=== PATIENT | female | born 1970 | race Caucasian/White ===

== ENCOUNTER 2017-11-27 | Emergency (ER) | payer OTHER ==
[2017-11-27 00:18] VITALS: BP 118/78; PULSE 71; TEMP 98.1; BMI 24.8
--- NOTE | 2017-11-27 00:54 | PDOC ---
History of Present Illness - General Chief Complaint: Syncope/Near Syncope Stated Complaint: HEADACHE, SYNCOPE, DIZZINESS Time Seen by Provider: 11/27/17 00:53 History Source: Patient Exam Limitations: No Limitations - History of Present Illness Initial Comments: Pt is a 47 yo F, with no significant PMH, who presents with vague symptoms, including increased fatigue and "forgetfulness" over the past 6 months and increased frontal headaches every 1-2 days for the past 2 weeks. 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 She states she felt "dizzy" but could not describe if the sensation was vertigo or light-headedness. Later in the day, the pt noticed a small "bump" on the left side of her neck, and she was concerned that she "might have a blood clot or have a stroke". The pt has recently seen her PCP (Dr. Bree Hood) for work-up last Sunday. The lab work and thyroid US are pending with her PCP office. She denies fevers/chills, vision changes, syncope, confusion, chest pain , palpitations, SOB, abdominal pain, urinary symptoms, diarrhea/constipation, and leg swelling. She has been tolerating PO intake without difficulty. LMP 2 weeks ago, normal in length and amount of bleeding. Denies cigarette smoking and drug use. Occasional alcohol use. 11/27/17 01:55 11/29/17 19:49 Past History - Travel Traveled outside of the country in the last 30 days: No Close contact w/someone who was outside of country & ill: No - Past Medical History Allergies/Adverse Reactions: Allergies Allergy/AdvReac Type Severity Reaction Status Date / Time No Known Allergies Allergy Verified 11/27/17 02:08 Home Medications: Ambulatory Orders NK [No Known Home Medication] 11/27/17 Hx Myocardial Infarction: No DVT: No Diabetes: No HTN: No Hypercholesterolemia: No Thyroid Disease: No - Surgical History Abdominal Surgery: No Cardiac Surgery: No - Suicide/Smoking/Psychosocial Hx Smoking History: Never smoked Have you smoked in the past 12 months: No Information on smoking cessation initiated: No Hx Alcohol Use: No Drug/Substance Use Hx: No Review of Systems - Review of Systems Able to Perform ROS?: Yes Is the patient limited Romanian proficient: No Constitutional: Yes: Weight Stable. No: Chills, Diaphoresis, Fever, Loss of Appetite, Night Sweats, Weakness HEENTM: No: Blurred Vision, Recent change in vision, Double Vision, Nose Congestion, Hearing Loss, Throat Pain, Difficulty Swallowing Respiratory: No: Cough, Orthopnea, Shortness of Breath Cardiac (ROS): Yes: Lightheadedness. No: Chest Pain, Edema, Irregular Heart Rate, Palpitations, Syncope (pre-syncopal episode today, unclear if light- headed or vertigo), Chest Tightness ABD/GI: No: Abdominal Distended, Blood Streaked Bowels, Constipated, Diarrhea, Nausea, Poor Appetite, Poor Fluid Intake, Vomiting : No: Burning, Dysuria, Frequency, Flank Pain, Pain Musculoskeletal: Yes: Neck Pain (L-sided neck pain over area of small mass). No : Back Pain, Joint Pain, Muscle Pain, Muscle Weakness Integumentary: No: Bruising, Flushing, Rash Neurological: Yes: Headache (mild frontal headache x2 weeks). No: Numbness, Paresthesia, Seizure, Tremors, Weakness, Unsteady Gait, Ataxia, Dizziness Psychiatric: Yes: Other (fatigue, not "feeling herself," forgetful). No: Anxiety, Depression, Frequent Crying, Stressors, Sleep Pattern Change, Change in Appetite Endocrine: No: Excessive Sweating, Intolerance to Cold, Intolerance to Heat, Increased Urine, Change in Weight Hematologic/Lymphatic: No: Anemia, Blood Clots, Easy Bleeding, Easy Bruising All Other Systems: Reviewed and Negative *Physical Exam - Vital Signs Last Vital Signs Temp Pulse Resp BP Pulse Ox 98.1 F 71 18 118/78 97 11/27/17 00:09 11/27/17 00:09 11/27/17 00:09 11/27/17 00:09 11/27/17 00:09 - Physical Exam General Appearance: Yes: Nourished, Appropriately Dressed. No: Apparent Distress (pt sitting comfortably on bed, vitals stable. No apparent distress.) HEENT: positive: EOMI, JYOTI, Normal ENT Inspection, Normal Voice, Symmetrical, TMs Normal, Pharynx Normal, Hearing Grossly Normal. negative: Scleral Icterus ( R), Scleral Icterus (L), Pharyngeal Erythema, Tonsillar Exudate, Tonsillar Erythema, Nasal Congestion, Rhinorrhea, Sinus Tenderness, TM Bulging, TM Dull, TM Erythema Neck: positive: Trachea midline, Normal Thyroid, Supple, Other (small 1 cm, circular, mobile LN over L posterior neck). negative: Tender, Rigid, Carotid bruit, Decreased range of motion, Lymphadenopathy (R), Lymphadenopathy (L) Respiratory/Chest: positive: Lungs Clear, Normal Breath Sounds. negative: Chest Tender, Respiratory Distress, Accessory Muscle Use Cardiovascular: positive: Regular Rhythm, Regular Rate, S1, S2. negative: Edema , JVD, Murmur Vascular Pulses: Carotid (R): 4+, Carotid (L): 4+ Gastrointestinal/Abdominal: positive: Normal Bowel Sounds, Flat, Soft. negative : Tender, Organomegaly, Pulsatile Mass, Distended, Guarding, Rebound Rectal Exam: positive: deferred Lymphatic: negative: Adenopathy, Tenderness Musculoskeletal: positive: Normal Inspection. negative: CVA Tenderness Extremity: positive: Normal Capillary Refill, Normal Inspection, Normal Range of Motion, Pelvis Stable. negative: Tender, Delayed Capillary Refill, Pedal Edema Integumentary: positive: Normal Color, Dry, Warm. negative: Jaundice, Clammy, Diaphoresis, Rash, Ecchymosis, Bruising Neurologic: positive: stationary fireman II-XII NML intact, Fully Oriented, Alert, Normal Mood/ Affect, Normal Response, Motor Strength 5/5. negative: EOM Palsy, Facial Droop , Numbness, Finger to Nose Deep Tendon Reflexes: Knee (L): 3+, Knee (R): 3+ ED Treatment Course - LABORATORY CBC & Chemistry Diagram: 11/27/17 02:48 11/27/17 02:48 Medical Decision Making - Medical Decision Making Pt presenting with vague symptoms, including increased fatigue and "forgetfulness" over the past 6 months and increased frontal headaches every 1- 2 days for the past 2 weeks. 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 She states she felt "dizzy" but could not describe vertigo vs light-headedness. She noticed a small "bump" on the left side of her neck today, and she was concerned that she "might have a blood clot or have a stroke". No FNDs on exam. Tender, well-circumscribed, mobile, 1 cm mass on L side of neck , considering lymph node vs cyst vs lipoma. PE showed pain with lateral rotation of neck and point tenderness at area of mass, neuro exam intact. Work-up will include causes of pre-syncope, such as TSH for thyroid ds, ECG (ACS ), CBC/CMP (electrolyte imbalances), and beta-hcg to r/o . Imaging is not indicated at this time as pt has no traumatic cause for her neck pain (no new lifting, no FNDs, no trauma). Pending lab results. Pt refused any medication for pain control. 11/27/17 01:49 ECG normal sinus rhythm, no increased intervals. 11/27/17 02:06 Labs have been sent, pending results. 11/27/17 03:08 CBC WNL, urine B-hcg negative. Pending CMP and TSH. 11/27/17 03:19 (entered later) CMP WNL. TSH 2.6 (WNL). Advised pt that dangerous causes of pre-syncope ruled-out with work-up and exam. Pt can continue ice or warm compress for neck pain as needed (mass appears to be small lymph node). Pt discharged to home with strict return precautions. Pt will follow-up with PCP for results of thyroid US and any necessary further work-up. 11/29/17 19:45 *DC/Admit/Observation/Transfer Diagnosis at time of Disposition: Neck pain on left side, Pre-syncope - Discharge Dispostion Disposition: HOME Condition at time of disposition: Good Decision to Admit order: No - Referrals Referrals: Bree Hood [Primary Care Provider] - - Patient Instructions Printed Discharge Instructions: DI for Syncope in Adults (Fainting) Additional Instructions: You were seen in the ER today for a near syncopal episode. Your lab results today were all normal (your blood work and thyroid test). Please follow-up with your primary care doctor to ensure your symptoms have resolved and for further work-up. Also, make sure to have your doctor re-examine the lymph node on your neck. Please return to the ER if you have any worsening dizziness, any loss of consciousness, inability to tolerate food or fluids, worsening neck pain, or any other concerns. - Post Discharge Activity
--- NOTE | 2017-11-27 01:34 | PDOC ---
Attending Attestation - Resident Resident Name: Shavon Centeno - ED Attending Attestation I have performed the following: I have examined & evaluated the patient, The case was reviewed & discussed with the resident, I agree w/resident's findings & plan, Exceptions are as noted - HPI HPI: 11/27/17 01:32 47yo F with no sig PMH presents to the ED with 6 months of lethargy. Today she bent down at supermarket and stood up, felt dizziness that she describes as "wobbling" for a few seconds, thought she may pass out prompting her to come to ED. Did not sit down, symptoms resolved while standing. No LOC. No CP, SOB, palpitations. Pt also notes L posterior lateral neck pain where she noticed a bump on her neck, was concerned bump was a blood clot. Pt also c/o gradual frontal headaches intermittently for 5 weeks. Denies focal weakness/numbness, visual sxs, stiff neck, abd pain, N/V/D, rashes. - Physicial Exam PE: 11/27/17 01:34 GENERAL: Awake, alert, and fully oriented, in no acute distress reading on her phone HEAD: No signs of trauma EYES: PERRLA, EOMI, sclera anicteric, conjunctiva clear ENT: Auricles normal inspection, hearing grossly normal, nares patent, oropharynx clear without exudates. Moist mucosa NECK: Normal ROM, supple, no JVD. L posterior lateral neck with <1cm firm mobile tender lymph node LUNGS: Breath sounds equal, clear to auscultation bilaterally. No wheezes, and no crackles HEART: Regular rate and rhythm, normal S1 and S2, no murmurs, rubs or gallops ABDOMEN: Soft, nontender, normoactive bowel sounds. No guarding, no rebound. No masses EXTREMITIES: Normal range of motion, no edema. No clubbing or cyanosis. No cords, erythema, or tenderness NEUROLOGICAL: Normal speech, cranial nerves intact,5/5 strength in all 4 extremities, normal sensation to light touch in all 4 extremities, normal cerebellar exam, normal gait, normal tone SKIN: Warm, Dry, normal turgor, no rashes or lesions noted. - Medical Decision Making 11/27/17 02:42 47yo F presents to the ED with concern for blood clot to L posterior neck, and a few seconds of dizziness after standing up from a squatting position at [facility]. Vitals wnl. On exam, pt has tender, mobile posterior cervical lymph node, likely reactive or infectious in etiology. REmainder of exam wnl. EKG non ischemic. Will check basic labs, TSH given c/o months of fatigue. Pt declines IVF in case of dehydration, prefers to hydrate PO. Will reassess. 11/27/17 04:43 Labs wnl Pt asymptomatic at this time REquests DC home pt to f/u with PMD I discussed the physical exam findings, ancillary test results and final diagnoses with the patient. I answered all of the patient's questions. The patient was satisfied with the care received and felt comfortable with the discharge plan and treatment plan. The patient will call their primary care physician within 24 hours to arrange follow-up and will return to the Emergency Department with any new, persistent or worsening symptoms. Heart Score/ECG Review #1 11/27/17 02:42 Twelve-lead EKG was performed and reviewed by me. Normal sinus rhythm, rate 69. Normal axis and intervals. No ST elevations or T-wave inversions.
[2017-11-27 03:08] LABS: BASO % 0.7 % (0-2.0); EOS % 5.4 % (0-4.5); HEMATOCRIT 39.7 % (32.4-45.2); HEMOGLOBIN 13.4 GM/dL (10.7-15.3); LYMPH % 35.9 % (8-40); MCH 32.1 pg (25.7-33.7); MCHC 33.7 g/dl (32.0-36.0); MEAN CELL VOLUME 95.1 fl (80-96); MEAN PLT VOLUME 7.2 fl (7.5-11.1); MONO % 10.2 % (3.8-10.2); NEUT % 47.8 % (42.8-82.8); PLATELET COUNT 251 K/MM3 (134-434); RBC 4.17 M/mm3 (3.60-5.2); RDW 12.8 % (11.6-15.6); WHITE BLOOD COUNT 4.9 K/mm3 (4.0-10.0)
[2017-11-27 03:30] LABS: ALK PHOS 44 U/L (45-117); ANION GAP 4 MMOL/L (8-16); BILIRUBIN,TOTAL 0.3 mg/dL (0.2-1); BLOOD UREA NITROGEN 13 mg/dL (7-18); CALCIUM 8.6 mg/dL (8.5-10.1); CHLORIDE 107 mmol/L (98-107); CO2 28 mmol/L (21-32); CREATININE 0.5 mg/dL (0.55-1.3); GLUCOSE,RANDOM 88 mg/dL (74-106); SGOT/AST 14 U/L (15-37); SGPT/ALT 22 U/L (13-61); SODIUM 139 mmol/L (136-145); TOT PROT 7.1 g/dl (6.4-8.2)
--- NOTE | 2017-11-27 12:50 | EKG ---
Test Reason : Blood Pressure : / mmHG Vent. Rate : 069 BPM Atrial Rate : 069 BPM P-R Int : 128 ms QRS Dur : 078 ms QT Int : 410 ms P-R-T Axes : -01 044 051 degrees QTc Int : 439 ms NORMAL SINUS RHYTHM NORMAL ECG NO PREVIOUS ECGS AVAILABLE Confirmed by MD RONEY, PRICILA ([id number]) on 11/27/2017 12:50:24 PM Referred By: Confirmed By:PRICILA SIM MD
== END 2017-11-27 05:32 | disposition home or self-care (01) ==
LOC: JER
DX: R55 Syncope and collapse (principal); R59.0 Localized enlarged lymph nodes
CPT/HCPCS: 36415; 80053; 84443; 84703; 85025; 93005; 93010; 99281-25

== ENCOUNTER 2023-05-24 12:48 | Emergency (ER) | payer OTHER ==
[2023-05-24 12:57] VITALS: BP 105/71; PULSE 76; RESP 17; TEMP 98.4; BMI 27.9
[2023-05-24 14:06] LABS: BASO % 0.5 % (0-2.0); EOS % 3.5 % (0-4.5); HEMOGLOBIN 13.2 GM/dL (10.7-15.3); LYMPH % 32.9 % (8-40); MCH 31.8 pg (25.7-33.7); MCHC 33.9 g/dl (32.0-36.0); MEAN CELL VOLUME 93.7 fl (80-96); MEAN PLT VOLUME 6.8 fl (7.5-11.1); MONO % 8.4 % (3.8-10.2); NEUT % 54.7 % (42.8-82.8); PLATELET COUNT 343 10^3/uL (134-434); RBC 4.16 M/mm3 (3.60-5.2); RDW 13.2 % (11.6-15.6); WHITE BLOOD COUNT 5.2 K/mm3 (4.0-10.0)
[2023-05-24 14:07] LABS: URINE APPEARANCE CLEAR; URINE BILIRUBIN NEGATIVE (NEGATIVE); URINE COLOR YELLOW; URINE GLUCOSE (UA) NEGATIVE (NEGATIVE); URINE KETONE NEGATIVE (NEGATIVE); URINE LEUK ESTERASE NEGATIVE (NEGATIVE); URINE NITRITE NEGATIVE (NEGATIVE); URINE PROTEIN NEGATIVE (NEGATIVE); URINE UROBILINOGEN 0.2 mg/dL (0.2-1.0)
[2023-05-24 14:14] LABS: HCG,QUALITATIVE URINE NEGATIVE
[2023-05-24 14:30] LABS: POTASSIUM 4.6 mmol/L (3.5-5.1)
[2023-05-24 14:31] LABS: CALCIUM 8.9 mg/dL (8.5-10.1)
[2023-05-24 14:32] LABS: ALBUMIN 3.5 g/dl (3.4-5.0); BLOOD UREA NITROGEN 19.3 mg/dL (7-18)
[2023-05-24 14:35] LABS: CREATININE 0.5 mg/dL (0.55-1.3)
[2023-05-24 14:37] LABS: BILIRUBIN,TOTAL 0.4 mg/dL (0.2-1); TOT PROT 6.9 g/dl (6.4-8.2)
== END 2023-05-24 17:02 | disposition left against medical advice (07) ==
LOC: JER 12:48
DX: D25.9 Leiomyoma of uterus, unspecified (principal); R10.2 Pelvic and perineal pain
CPT/HCPCS: 36415; 76830-TC; 80053; 81003; 83690; 84703; 85025; 87086; 87491; 87591; 99284-25